=== PATIENT | male | born 1990 | race Caucasian/White ===

== ENCOUNTER 2016-10-01 12:28 | Emergency (ER) | payer OTHER ==
[2016-10-01 13:18] VITALS: BP 131/73; PULSE 75; TEMP 98.3; BMI 22.4
--- NOTE | 2016-10-01 13:43 | PDOC ---
History of Present Illness - General Chief Complaint: Lightheaded Stated Complaint: LIGHTHEADED, DIZZINESS (EMPLOYEE) Time Seen by Provider: 10/01/16 13:26 History Source: Patient - History of Present Illness Timing/Duration: momentarily Associated Symptoms: denies: chest pain, diaphoresis, fever/chills, headaches, nausea/vomiting, shortness of breath, syncope, weakness Past History - Past Medical History Allergies/Adverse Reactions: Allergies Allergy/AdvReac Type Severity Reaction Status Date / Time Penicillins Allergy Unknown Verified 10/01/16 13:16 Home Medications: Ambulatory Orders No Home Medications 0 dose .ROUTE UTDICT 05/10/12 Other medical history: DENIES - Immunization History Td Vaccination: Yes Immunization Up to Date: Yes - Psycho/Social/Smoking Cessation Hx Anxiety: No Suicidal Ideation: No Smoking Status: No Smoking History: Never smoked Have you smoked in the past 12 months: No Number of Cigarettes Smoked Daily: 0 Information on smoking cessation initiated: No Hx Alcohol Use: No Drug/Substance Use Hx: No Substance Use Type: None Review of Systems - Review of Systems Constitutional: No: Chills, Fever Respiratory: No: Shortness of Breath Cardiac (ROS): No: Chest Pain Neurological: Yes: Dizziness. No: Headache *Physical Exam - Vital Signs Last Vital Signs Temp Pulse Resp BP Pulse Ox 98.3 F 75 20 131/73 99 10/01/16 13:16 10/01/16 13:16 10/01/16 13:16 10/01/16 13:16 10/01/16 13:16 - Physical Exam General Appearance: Yes: Appropriately Dressed. No: Apparent Distress HEENT: positive: Normal Voice Neck: positive: Supple Respiratory/Chest: positive: Lungs Clear, Normal Breath Sounds. negative: Respiratory Distress Cardiovascular: positive: Regular Rate, S1, S2 Integumentary: positive: Dry, Warm Neurologic: positive: Fully Oriented, Alert, Normal Mood/Affect Medical Decision Making - Medical Decision Making 10/01/16 13:40 25 yo M, no sig hx, here w/ brief e/o dizziness today while at work. States he had nothing to eat or drink all day and when he was about to finally eat ~1/2 hr ago, he became lightheaded and instead of eating, came to ED instead. States sxs have since resolved. No SANDERSON, visual changes, focal weakness, CP or SOB. Pt well galina w/ unremarkable exam. M/l transient hypoglycemia, will check EKG 10/01/16 13:58 FS 101. Pt remains asymptomatic in ED. Stable for discharge and encourage po intake *DC/Admit/Observation/Transfer Diagnosis at time of Disposition: Dizziness - Discharge Dispostion Disposition: HOME Condition at time of disposition: Improved - Patient Instructions Printed Discharge Instructions: Dizziness, Nonvertigo Additional Instructions: The cause of your dizziness was probably due to low blood sugar. Please return for worsening of symptoms
== END 2016-10-01 14:05 | disposition home or self-care (01) ==
LOC: JERFT 12:28
DX: R42 Dizziness and giddiness (principal)
CPT/HCPCS: 99281-25